=== PATIENT | male | born 1975 | race Two or more races ===

== ENCOUNTER 2025-02-17 11:47 | Emergency (ER) | payer BC ==
[~2025-02-17] VITALS: Ht 180.3 cm; Wt 104.3 kg
[2025-02-17 11:55] VITALS: BP 124/81; TEMP 97.9; O2SAT 99
[2025-02-17] MEDS ORDERED: AMOX-430 PO (12:21)
[2025-02-17] MEDS ORDERED: AMOX/CLAVULANATE 875 MG TABLET ONE (12:25)
[2025-02-17] MEDS ORDERED: TDAP [DIPH/PERTUSSIS/TET] 0.5 ML VIAL IM ONE (12:26)
[2025-02-17] MEDS: AMOX/CLAVULANATE 875 MG TABLET PO ONE (12:33)
[2025-02-17] MEDS: TDAP [DIPH/PERTUSSIS/TET] 0.5 ML VIAL IM ONE (12:35)
== END 2025-02-17 12:57 | disposition home or self-care (01) ==
LOC: ER 12:08
DX: S61.233A Puncture wound without foreign body of left middle finger without damage to nail, initial encounter (principal); W53.21XA Bitten by squirrel, initial encounter; Y93.89 Activity, other specified; Y92.89 Other specified places as the place of occurrence of the external cause; Y99.8 Other external cause status
CPT/HCPCS: 90715